=== PATIENT | male | born 1955 | race Caucasian/White ===

== ENCOUNTER 2016-12-03 06:10 | Emergency (ER) | payer MEDICARE ==
[2016-12-03 06:26] VITALS: BP 142/99
[2016-12-03 06:46] LABS: Basophils % (Auto) 0.4 % (0.0-1.8); Eosinophils % (Auto) 0.9 % (0.0-4.3); Hematocrit 43.1 % (35.5-45.6); Hemoglobin 14.8 gm/dl (11.8-15.2); Mean Corpuscular HGB Conc 34 % (32-34); Mean Corpuscular Hemoglobin 28 pg (28-32); Mean Corpuscular Volume 83 fl (84-94); Platelet Count 153 K/mm3 (140-440); Red Cell Distribution Width 13.1 % (13.2-15.2); White Blood Count 6.3 K/mm3 (4.5-11.0)
[2016-12-03 07:03] LABS: Albumin 4.7 g/dL (3.9-5); Albumin/Globulin Ratio 1.5 %; BUN/Creatinine Ratio 17.14; Bilirubin,Total 0.6 mg/dL (0.1-1.2); Calcium 10.3 mg/dL (8.4-10.2); Chloride 101.6 mmol/L (98-107); Potassium 4.5 mmol/L (3.6-5.0); Total Protein 7.8 g/dL (6.3-8.2)
[2016-12-03 11:04] LABS: Bilirubin,Urine NEG (Negative); Blood,Urine NEG (Negative); Ketones,Urine NEG (Negative); Leukocyte Esterase,Urine NEG (Negative); Nitrite,Urine NEG (Negative); Protein,Urine <15 mg/dL mg/dL (Negative); Urobilinogen,Urine < 2.0 mg/dL (<2.0); WBC,Urine < 1.0 /HPF (0.0-6.0)
--- NOTE | 2016-12-04 17:56 | ED Elopement Review ---
ED Pt Elopement review - Results review Lab results: Laboratory Tests 12/03/16 12/03/16 12/03/16 06:31 06:31 10:11 WBC 6.3 RBC 5.20 H Hgb 14.8 Hct 43.1 MCV 83 L MCH 28 MCHC 34 RDW 13.1 L Plt Count 153 Lymph % (Auto) 27.7 Bowie % (Auto) 7.3 Eos % (Auto) 0.9 Baso % (Auto) 0.4 Lymph # 1.7 Bowie # 0.5 Eos # 0.1 Baso # 0.0 Seg Neutrophils % 63.7 Seg Neutrophils # 4.0 Sodium 141 Potassium 4.5 Chloride 101.6 Carbon Dioxide 25 Anion Gap 19 BUN 24 H Creatinine 1.4 Estimated GFR 52 BUN/Creatinine Ratio 17.14 Glucose 135 H Calcium 10.3 H Total Bilirubin 0.6 AST 18 ALT 16 Alkaline Phosphatase 66 Total Protein 7.8 Albumin 4.7 Albumin/Globulin Ratio 1.5 Lipase 55 Urine Color Yellow Urine Turbidity Clear Urine pH 5.0 Ur Specific [place] 1.020 Urine Protein <15 mg/dl Urine Glucose (UA) Neg Urine Ketones Neg Urine Blood Neg Urine Nitrite Neg Urine Bilirubin Neg Urine Urobilinogen < 2.0 Ur Leukocyte Esterase Neg Urine WBC (Auto) < 1.0 Urine RBC (Auto) 2.0 U Epithel Cells (Auto) < 1.0 - Call Back decision Pt Call Back Decision: No action required
== END 2016-12-03 14:16 | disposition left against medical advice (07) ==
LOC: ED 06:10
DX: R10.9 Unspecified abdominal pain (principal); R11.2 Nausea with vomiting, unspecified; K59.00 Constipation, unspecified; Z53.21 Procedure and treatment not carried out due to patient leaving prior to being seen by health care provider
CPT/HCPCS: 36415; 80053; 81001; 83690; 85025

== ENCOUNTER 2017-06-21 08:31 | Emergency (ER) | payer MEDICARE ==
[2017-06-21 08:55] LABS: Urine Drugs of Abuse Note Disclamer
[2017-06-21 09:16] LABS: Anion Gap 16 mmol/L; BUN/Creatinine Ratio 15; Blood Urea Nitrogen 18 mg/dL (9-20); Calcium 10.1 mg/dL (8.4-10.2); Carbon Dioxide 30 mmol/L (22-30); Chloride 105.6 mmol/L (98-107); Glucose 112 mg/dL (75-100); Potassium 4.4 mmol/L (3.6-5.0); Sodium 147 mmol/L (137-145)
[2017-06-21 09:24] LABS: Basophils % (Auto) 0.6 % (0.0-1.8); Eosinophils % (Auto) 1.4 % (0.0-4.3); Hematocrit 46.8 % (35.5-45.6); Hemoglobin 15.7 gm/dl (11.8-15.2); Mean Corpuscular HGB Conc 34 % (32-34); Mean Corpuscular Hemoglobin 28 pg (28-32); Mean Corpuscular Volume 85 fl (84-94); Platelet Count 185 K/mm3 (140-440); Red Blood Count 5.53 M/mm3 (3.65-5.03); Red Cell Distribution Width 12.9 % (13.2-15.2); White Blood Count 6.1 K/mm3 (4.5-11.0)
[2017-06-21 09:28] LABS: Bilirubin,Urine NEG (Negative); Blood,Urine NEG (Negative); Ketones,Urine NEG (Negative); Leukocyte Esterase,Urine NEG (Negative); Mucus,Urine FEW /HPF; Nitrite,Urine NEG (Negative); Protein,Urine <15 mg/dL mg/dL (Negative); Urobilinogen,Urine < 2.0 mg/dL (<2.0)
[2017-06-21] MEDS ORDERED: AMBIEN PO PRN (19:01)
--- NOTE | 2017-06-21 19:28 | Emergency Department Report ---
HPI - General Chief Complaint: Psych Time Seen by Provider: 06/21/17 17:14 - HPI HPI: This is a 61-year-old male presents to the emergency department with complaint of depression and suicidal ideations. The patient has a history of manic depression and schizophrenia. He says that he has been hearing voices as well which is exacerbating his symptoms. When asked what is causing his depression, he says that he has been having some family issues and tension amongst family members. He does not have any specific plan as to how he would like to hurt himself. He denies any illicit drugs or any alcohol use. He denies any visual ulcerations, homicidal ideations. The patient has had multiple inpatient psychiatric admissions in the past. He says that he follows with the [facility] for his psychiatric needs and gets monthly and Invega injections. ED Past Medical Hx - Past Medical History Previous Medical History?: Yes Hx Hypertension: Yes Hx Heart Attack/AMI: Yes Hx Congestive Heart Failure: No Hx Diabetes: No Hx Arthritis: Yes Hx Headaches / Migraines: Yes Hx Seizures: Yes Hx Kidney Stones: Yes Hx Psychiatric Treatment: Yes (Bi-polar, Depression) Hx Asthma: Yes Hx COPD: No Hx Tuberculosis: No Additional medical history: coma 2009-- medicine induced - Surgical History Past Surgical History?: Yes Hx Coronary Stent: Yes Additional Surgical History: BI-lateral hip replacement 2013 - Social History Smoking Status: Never Smoker Substance Use Type: None - Medications Home Medications: Home Medications Medication Instructions Recorded Confirmed Last Taken Type Chlorpromazine HCl [chlorproMAZINE] 75 mg PO HS 07/22/15 07/22/15 Unknown History Docusate Sodium [Colace CAP] 100 mg PO DAILY 07/22/15 07/22/15 Unknown History Famotidine [Pepcid] 20 mg PO DAILY 07/22/15 07/22/15 Unknown History LORazepam [Ativan] 1 mg PO TID 07/22/15 07/22/15 Unknown History Lisinopril [Zestril TAB] 2.5 mg PO QDAY 07/22/15 07/22/15 Unknown History Multivitamin Tab [Multiple Vitamin 1 tab PO DAILY 07/22/15 07/22/15 Unknown History TAB (Theragran)] Tamsulosin [Flomax] 0.4 mg PO QHS 07/22/15 07/22/15 Unknown History Temazepam [Restoril] 30 mg PO QHS 07/22/15 07/22/15 Unknown History fluPHENAZine HCL [fluPHENAZine] 10 mg PO BID 07/22/15 07/22/15 Unknown History HYDROcodone/APAP 7.5-325 [[place] 1 each PO Q8HR PRN #12 tablet 11/08/16 Unknown Rx 7.5-325 mg TAB] Ondansetron [Zofran TAB] 4 mg PO Q8HR PRN #20 tablet 11/08/16 Unknown Rx ED Review of Systems ROS: Stated complaint: MENTAL HEALTH, SUICIDAL Other details as noted in HPI Comment: All other systems reviewed and negative Constitutional: denies: chills, fever Eyes: denies: eye pain, eye discharge, vision change ENT: denies: ear pain, throat pain Respiratory: denies: cough, shortness of breath, wheezing Cardiovascular: denies: chest pain, palpitations Gastrointestinal: denies: abdominal pain, nausea, diarrhea Genitourinary: denies: urgency, dysuria Musculoskeletal: denies: back pain, joint swelling, arthralgia Skin: denies: rash, lesions Neurological: denies: headache, weakness, paresthesias Psychiatric: auditory hallucinations, suicidal thoughts. denies: visual hallucinations, homicidal thoughts Physical Exam - Physical Exam Vital Signs: Vital Signs 06/21/17 06/21/17 08:39 16:12 Temperature 98.4 F Pulse Rate 68 53 L Respiratory 16 18 Rate Blood Pressure 110/82 Blood Pressure 142/86 [Right] O2 Sat by Pulse 97 Oximetry Physical Exam: GENERAL: The patient is well-developed well-nourished. HENT: Normocephalic. Atraumatic. Patient has moist mucous membranes. EYES: Extraocular motions are intact. Pupils equal reactive to light bilaterally. NECK: Supple. Trachea is midline. CHEST/LUNGS: Clear to auscultation. There is no respiratory distress noted. HEART/CARDIOVASCULAR: Regular. There is no tachycardia. There is no gallop rub or murmur. ABDOMEN: Abdomen is soft, nontender. Patient has normal bowel sounds. There is no abdominal distention. SKIN: Skin is warm and dry. NEURO: The patient is awake, alert, and oriented. The patient is cooperative. The patient has no focal neurologic deficits. The patient has normal speech. MUSCULOSKELETAL: There is no tenderness or deformity. There is no limitation range of motion. There is no evidence of acute injury. ED Course Vital Signs 06/21/17 06/21/17 08:39 16:12 Temperature 98.4 F Pulse Rate 68 53 L Respiratory 16 18 Rate Blood Pressure 110/82 Blood Pressure 142/86 [Right] O2 Sat by Pulse 97 Oximetry ED Medical Decision Making - Lab Data Result diagrams: 06/21/17 08:48 06/21/17 08:48 - Medical Decision Making 61-year-old male presents with complaint of increased depression and suicidal ideations over the past few weeks. It also appears that the patient is not happy with his current living situation at [place]. Labs are unremarkable including negative UDS and blood alcohol level. No signs of infection or lateral abnormalities. Vital signs stable throughout his ED course. He was made a 1013 secondary to the suicidal ideations. He appears medically cleared for psychiatric placement. - Differential Diagnosis schizophrenia, schizoaffective, bipolar, substance abuse Critical Care Time: No Critical care attestation.: If time is entered above; I have spent that time in minutes in the direct care of this critically ill patient, excluding procedure time. ED Disposition Clinical Impression: Suicidal ideations, Hearing voices Disposition: DC/TX-65 PSY HOSP/PSY UNIT Is pt being admited?: No Condition: Stable Referrals: PRIMARY MD MYRANDA [Primary Care Provider] - 3-5 Days Time of Disposition: 19:28
[2017-06-21 20:04] VITALS: BP 124/82
== END 2017-06-22 07:00 ==
LOC: ED 08:31 → EEVIPCON 08:31 → ED 06-22 07:00
DX: R45.851 Suicidal ideations (principal); R44.0 Auditory hallucinations; I10 Essential (primary) hypertension; I25.2 Old myocardial infarction; M19.90 Unspecified osteoarthritis, unspecified site; R56.9 Unspecified convulsions; F31.9 Bipolar disorder, unspecified
CPT/HCPCS: 36415; 80048; 80307; 81001; 85025; 99285; G0480; 80320

== ENCOUNTER 2017-06-28 01:38 | Emergency (ER) | payer MEDICARE ==
--- NOTE | 2017-06-28 07:37 | Emergency Department Report ---
Chief Complaint: Skin/Abscess/Foreign Body Stated Complaint: EAR ACHE - HPI History of Present Illness: 61-year-old male past medical history asthma, [place], CAD with stents, bipolar disorder, migraines, multiple allergies presents with multiple complaints. Patient's first complaint is that he has had multiple episodes of dizziness and weakness over the last 3-5 days. Patient states he has also had some intermittent chest pain. Patient also states he is concerned that he may have been exposed to bedbugs and has seen them crawling on his belongings. Patient is complaining of left earache and is concerned bedbugs may be in his ear. - ROS Review of Systems: Possible exposure to bedbugs, intermittent episodes of dizziness - Exam Vital Signs: Vital Signs 06/28/17 02:29 Temperature 97.8 F Pulse Rate 78 Respiratory 16 Rate Blood Pressure 129/91 O2 Sat by Pulse 97 Oximetry Physical Exam: Ear wax impaction left ear canal, right ear canal within normal limits, no obvious signs of bedbug infestation on initial inspection, patient is awake alert and oriented 3 MSE screening note: Focused history and physical exam performed. Due to findings the following was ordered: Screening Assessment/Plan/Differential Dx: Possible bedbug exposure, dizziness, chest pain 1- This initial assessment/diagnostic orders/clinical plan/ treatment(s) is/are subject to change based on pt's health status, clinical progression and re- assessment by fellow clinical providers in the ED. Further treatment and workup at subsequent clinical provers discretion. Patient/guardians urged not to elope from ED as their condition may be serious if not clinically assessed and managed. 2-as patient complains of dizziness and chest pain I will order EKG and basic labs, UA, troponin 3-I notified the nurse Osmar as charge nurse was unavailable at this time the patient is not solely here as a possible bedbug exposure but has other symptoms including dizziness and chest pain ED Disposition for MSE Condition: Stable Referrals: PRIMARY CARE,MD [Primary Care Provider] - 3-5 Days
[2017-06-28 07:59] LABS: Basophils % (Auto) 0.5 % (0.0-1.8); Hematocrit 44.2 % (35.5-45.6); Hemoglobin 15.1 gm/dl (11.8-15.2); Mean Corpuscular HGB Conc 34 % (32-34); Mean Corpuscular Hemoglobin 29 pg (28-32); Mean Corpuscular Volume 84 fl (84-94); Platelet Count 135 K/mm3 (140-440); Red Blood Count 5.28 M/mm3 (3.65-5.03); Red Cell Distribution Width 12.7 % (13.2-15.2); White Blood Count 6.3 K/mm3 (4.5-11.0)
[2017-06-28 08:15] LABS: BUN/Creatinine Ratio 13; Blood Urea Nitrogen 15 mg/dL (9-20); Calcium 9.4 mg/dL (8.4-10.2); Carbon Dioxide 29 mmol/L (22-30); Creatine Kinase 72 units/L (55-170); Glucose 112 mg/dL (75-100)
[2017-06-28 08:16] LABS: Anion Gap 17 mmol/L; Potassium 3.9 mmol/L (3.6-5.0); Sodium 144 mmol/L (137-145)
--- NOTE | 2017-06-28 08:35 | Emergency Department Report ---
ED General Adult HPI - General Chief complaint: Skin/Abscess/Foreign Body Stated complaint: EAR ACHE Time Seen by Provider: 06/28/17 08:05 Source: patient Mode of arrival: Ambulatory Limitations: No Limitations - History of Present Illness Initial comments: The patient had a sensation of bugs crawling on him. He does admit to essentially formication, that is the sensation of bugs crawling all over him due to his psychiatric condition. He believed that bugs were crawling in his eyes and in his years. He also stated that incidentally he had some soreness in his lower sternal area which did not radiate. He is pain free now. He was examined and medical screening to include otoscopy which was negative. He was sent to the emergency department for evaluation of his chest pain which does not seem to be significant at this time. Patient denies any prior history of coronary artery disease. He states that he woke up in a coma he states due to diabetes although he is not a diabetic. He admits that he may have taken an overdose at that time. In any case he required tracheostomy. He has no knowledge or history of myocardial infarction. He does not report a family history thereof. He does not currently smoke. He lives in a snf for his mental health disorder. -: Gradual Location: chest Radiation: non-radiation Quality: other (soreness) Consistency: now resolved Improves with: none Worsens with: none Associated Symptoms: denies other symptoms Treatments Prior to Arrival: none - Related Data Home Medications Medication Instructions Recorded Confirmed Last Taken Chlorpromazine HCl [chlorproMAZINE] 75 mg PO HS 07/22/15 07/22/15 Unknown Docusate Sodium [Colace CAP] 100 mg PO DAILY 07/22/15 07/22/15 Unknown Famotidine [Pepcid] 20 mg PO DAILY 07/22/15 07/22/15 Unknown LORazepam [Ativan] 1 mg PO TID 07/22/15 07/22/15 Unknown Lisinopril [Zestril TAB] 2.5 mg PO QDAY 07/22/15 07/22/15 Unknown Multivitamin Tab [Multiple Vitamin 1 tab PO DAILY 07/22/15 07/22/15 Unknown TAB (Theragran)] Tamsulosin [Flomax] 0.4 mg PO QHS 07/22/15 07/22/15 Unknown Temazepam [Restoril] 30 mg PO QHS 07/22/15 07/22/15 Unknown fluPHENAZine HCL [fluPHENAZine] 10 mg PO BID 07/22/15 07/22/15 Unknown Previous Rx's Medication Instructions Recorded Last Taken Type HYDROcodone/APAP 7.5-325 [[employer] 1 each PO Q8HR PRN #12 tablet 11/08/16 Unknown Rx 7.5-325 mg TAB] Ondansetron [Zofran TAB] 4 mg PO Q8HR PRN #20 tablet 11/08/16 Unknown Rx Allergies Allergy/AdvReac Type Severity Reaction Status Date / Time haloperidol [From Haldol] Allergy Intermediate Shortness Verified 07/21/15 20:48 of Breath haloperidol lactate Allergy Intermediate Shortness Verified 07/21/15 20:48 [From Haldol] of Breath oxycodone Allergy Unknown Verified 12/03/16 06:20 benztropine mesylate AdvReac Shortness Verified 07/21/15 20:49 [From Cogentin] of Breath ED Review of Systems ROS: Stated complaint: EAR ACHE Other details as noted in HPI Constitutional: denies: chills, fever Eyes: denies: eye pain, eye discharge, vision change ENT: denies: ear pain, throat pain Respiratory: denies: cough, shortness of breath, wheezing Cardiovascular: chest pain. denies: palpitations Endocrine: no symptoms reported Gastrointestinal: denies: abdominal pain, nausea, diarrhea Genitourinary: denies: urgency, dysuria Musculoskeletal: denies: back pain, joint swelling, arthralgia Skin: denies: rash, lesions Neurological: denies: headache, weakness, paresthesias Psychiatric: other (formication). denies: anxiety, depression Hematological/Lymphatic: denies: easy bleeding, easy bruising ED Past Medical Hx - Past Medical History Previous Medical History?: Yes Hx Hypertension: Yes Hx Heart Attack/AMI: Yes Hx Congestive Heart Failure: No Hx Diabetes: No Hx Arthritis: Yes Hx Headaches / Migraines: Yes Hx Seizures: Yes Hx Kidney Stones: Yes Hx Psychiatric Treatment: Yes (Bi-polar, Depression) Hx Asthma: Yes Hx COPD: No Hx Tuberculosis: No Hx HIV: Yes Additional medical history: coma 2009-- medicine induced - Surgical History Past Surgical History?: Yes Hx Coronary Stent: Yes Additional Surgical History: BI-lateral hip replacement 2013 - Social History Smoking Status: Never Smoker - Medications Home Medications: Home Medications Medication Instructions Recorded Confirmed Last Taken Type Chlorpromazine HCl [chlorproMAZINE] 75 mg PO HS 07/22/15 07/22/15 Unknown History Docusate Sodium [Colace CAP] 100 mg PO DAILY 07/22/15 07/22/15 Unknown History Famotidine [Pepcid] 20 mg PO DAILY 07/22/15 07/22/15 Unknown History LORazepam [Ativan] 1 mg PO TID 07/22/15 07/22/15 Unknown History Lisinopril [Zestril TAB] 2.5 mg PO QDAY 07/22/15 07/22/15 Unknown History Multivitamin Tab [Multiple Vitamin 1 tab PO DAILY 07/22/15 07/22/15 Unknown History TAB (Theragran)] Tamsulosin [Flomax] 0.4 mg PO QHS 07/22/15 07/22/15 Unknown History Temazepam [Restoril] 30 mg PO QHS 07/22/15 07/22/15 Unknown History fluPHENAZine HCL [fluPHENAZine] 10 mg PO BID 07/22/15 07/22/15 Unknown History HYDROcodone/APAP 7.5-325 [[employer] 1 each PO Q8HR PRN #12 tablet 11/08/16 Unknown Rx 7.5-325 mg TAB] Ondansetron [Zofran TAB] 4 mg PO Q8HR PRN #20 tablet 11/08/16 Unknown Rx ED Physical Exam - General Limitations: No Limitations General appearance: alert, in no apparent distress - Head Head exam: Present: atraumatic, normocephalic - Eye Eye exam: Present: normal appearance. Absent: scleral icterus - ENT ENT exam: Present: mucous membranes moist - Neck Neck exam: Present: normal inspection. Absent: tenderness, meningismus - Respiratory Respiratory exam: Present: normal lung sounds bilaterally. Absent: respiratory distress - Cardiovascular Cardiovascular Exam: Present: regular rate, normal rhythm. Absent: systolic murmur, diastolic murmur, rubs, gallop - GI/Abdominal GI/Abdominal exam: Present: soft, normal bowel sounds. Absent: distended, tenderness, guarding, rebound, rigid - Rectal Rectal exam: Present: deferred - Extremities Exam Extremities exam: Present: normal inspection - Back Exam Back exam: Present: normal inspection. Absent: CVA tenderness (R), CVA tenderness (L), paraspinal tenderness, vertebral tenderness - Neurological Exam Neurological exam: Present: alert, oriented X3, CN II-XII intact. Absent: motor sensory deficit - Psychiatric Psychiatric exam: Present: normal mood, flat affect - Skin Skin exam: Present: warm, dry, intact, normal color, other (I did not see evidence of bug bites or bumps on the skin). Absent: rash ED Course Vital Signs 06/28/17 02:29 Temperature 97.8 F Pulse Rate 78 Respiratory 16 Rate Blood Pressure 129/91 O2 Sat by Pulse 97 Oximetry ED Medical Decision Making - Lab Data Result diagrams: 06/28/17 07:39 06/28/17 07:39 Laboratory Results - last 24 hr 06/28/17 06/28/17 07:39 07:39 WBC 6.3 RBC 5.28 H Hgb 15.1 Hct 44.2 MCV 84 MCH 29 MCHC 34 RDW 12.7 L Plt Count 135 L Lymph % (Auto) 25.2 [place] % (Auto) 6.5 Eos % (Auto) 2.0 Baso % (Auto) 0.5 Lymph # 1.6 Riley # 0.4 Eos # 0.1 Baso # 0.0 Seg Neutrophils % 65.8 Seg Neutrophils # 4.2 Sodium 144 Potassium 3.9 Chloride 102.0 Carbon Dioxide 29 Anion Gap 17 BUN 15 Creatinine 1.2 Estimated GFR > 60 BUN/Creatinine Ratio 13 Glucose 112 H Calcium 9.4 Total Creatine Kinase 72 Troponin T < 0.010 - EKG Data -: EKG Interpreted by Ri EKG shows normal: sinus rhythm, axis, intervals, QRS complexes, ST-T waves Rate: normal - EKG Data Interpretation: normal EKG - Medical Decision Making Patient's AIDAN score is 0. His heart score is 1. He is appropriate for outpatient disposition Critical care attestation.: If time is entered above; I have spent that time in minutes in the direct care of this critically ill patient, excluding procedure time. ED Disposition Clinical Impression: Atypical chest pain, Formication Disposition: DC-01 TO HOME OR SELFCARE Is pt being admited?: No Does the pt Need Aspirin: No Condition: Stable Instructions: Chest Pain (ED) Additional Instructions: Follow-up with the primary care provider. Return any acute change or worsening symptoms. Referrals: PRIMARY CARE, [Primary Care Provider] - 2-3 Days Time of Disposition: 08:36
[2017-06-28 09:03] VITALS: BP 159/88
== END 2017-06-28 09:05 | disposition home or self-care (01) ==
LOC: ED 01:38
DX: R07.89 Other chest pain (principal); I10 Essential (primary) hypertension; I25.2 Old myocardial infarction; G43.909 Migraine, unspecified, not intractable, without status migrainosus; F32.9 Major depressive disorder, single episode, unspecified; J45.909 Unspecified asthma, uncomplicated; Z88.8 Allergy status to other drugs, medicaments and biological substances; M19.90 Unspecified osteoarthritis, unspecified site
CPT/HCPCS: 36415; 80048; 82550; 84484; 85025; 93005; 93010; 99283

== ENCOUNTER 2017-07-26 16:29 | Emergency (ER) | payer MEDICARE ==
--- NOTE | 2017-07-26 17:21 | Emergency Department Report ---
Chief Complaint: Extremity Injury, Lower Stated Complaint: RIGHT LEG PAIN ,SWOLLEN - HPI History of Present Illness: this is a 61-year-old male that presents with right leg pain and calf pain 4 weeks. Patient describes Pain as aching level of 8 out of 10. Denies any trauma. Denies any numbness, tingling, fever, chills, nausea, vomiting, chest pain or shortness of breath. Past medical history includes DVT to the left lower extremity, arthritis, asthma, headache, [place], HIV, hypertension, kidney stones, seizure, bipolar, coronary stent. - Exam Vital Signs: Vital Signs 07/26/17 17:04 Temperature 98.6 F Pulse Rate 63 Respiratory 18 Rate Blood Pressure 119/79 O2 Sat by Pulse 98 Oximetry Physical Exam: GENERAL: The patient is a well-developed, well-nourished female in no apparent distress. Patient is alert and acting appropriately for age. Alert and oriented 3, no apparent distress, normal gait, atraumatic. LUNGS: Clear to auscultation. Non labor breathing. No intercostal retractions. Symmetrical with respiration, no wheezing, no rales, or crackles. HEART: Regular rate and rhythm without murmur, rubs or gallops. No reproducible. S1, S2 present, regular rate and rhythm without murmur, no rubs, no gallops. EXTREMITIES: Without any cyanosis, clubbing, rash, lesions or edema. Peripheral pulses intact. Capillary refill less than 2 seconds. Full range of motion bilaterally. Positive Homans test to the right extremity. No joint swelling or joint redness. Right Calf tenderness touch. MSE screening note: Focused history and physical exam performed. Due to findings the following was ordered: 1- This initial assessment/diagnostic orders/clinical plan/ treatment(s) is/are subject to change based on pt's health status, clinical progression and re- assessment by fellow clinical providers in the ED. Further treatment and workup at subsequent clinical provers discretion. Patient/guardians urged not to elope from ED as their condition may be serious if not clinically assessed and managed. 2-CBC, CMP, Pt, INR, UA 3-Doppler ultrasound right lower extremity ED Disposition for MSE Condition: Stable
[2017-07-26 17:53] LABS: Basophils % (Auto) 0.4 % (0.0-1.8); Eosinophils % (Auto) 3.3 % (0.0-4.3); Hematocrit 41.8 % (35.5-45.6); Hemoglobin 14.5 gm/dl (11.8-15.2); Mean Corpuscular HGB Conc 35 % (32-34); Mean Corpuscular Hemoglobin 29 pg (28-32); Mean Corpuscular Volume 85 fl (84-94); Platelet Count 151 K/mm3 (140-440); Red Blood Count 4.94 M/mm3 (3.65-5.03); Red Cell Distribution Width 12.2 % (13.2-15.2); White Blood Count 7.2 K/mm3 (4.5-11.0)
[2017-07-26 18:04] LABS: INR 0.98 (0.87-1.13)
[2017-07-26 18:05] LABS: Partial Thromboplastin Time 40.5 Sec. (24.2-36.6)
[2017-07-26 18:14] LABS: Alanine Aminotransferase 7 units/L (7-56); Albumin 4.5 g/dL (3.9-5); Albumin/Globulin Ratio 1.6 %; Alkaline Phosphatase 69 units/L (35-129); Anion Gap 18 mmol/L; BUN/Creatinine Ratio 15; Blood Urea Nitrogen 18 mg/dL (9-20); Calcium 9.8 mg/dL (8.4-10.2); Carbon Dioxide 29 mmol/L (22-30); Glucose 82 mg/dL (75-100); Potassium 4.1 mmol/L (3.6-5.0); Sodium 143 mmol/L (137-145); Total Protein 7.3 g/dL (6.3-8.2)
[2017-07-26 21:40] VITALS: BP 123/77
[2017-07-26] MEDS ORDERED: LOVENOX SUB-Q SCH (23:45)
--- NOTE | 2017-07-27 01:29 | Emergency Department Report ---
ED General Adult HPI - General Chief complaint: Extremity Injury, Lower Stated complaint: RIGHT LEG PAIN ,SWOLLEN Time Seen by Provider: 07/26/17 22:32 Source: patient Mode of arrival: Ambulatory Limitations: No Limitations - History of Present Illness Initial comments: Patient is a 61-year-old male past history of bipolar disorder who presents with right calf swelling. Patient states the right calf swollen has been going on for the last 4 weeks. He states that he has only a moderate amount of pain in the calf. This is a 3 out of 10 as an achy type pain that doesn't radiate anywhere. He was told to come to the emergency department to get a ultrasound of his leg. Patient denies any shortness of breath or any nausea or vomiting. Patient arrived in the evening and currently there are no ultrasound techs to do the DVT ultrasound. Severity scale (0 -10): 8 - Related Data Home Medications Medication Instructions Recorded Confirmed Last Taken Chlorpromazine HCl [chlorproMAZINE] 75 mg PO HS 07/22/15 07/26/17 Unknown Docusate Sodium [Colace CAP] 100 mg PO DAILY 07/22/15 07/27/17 Unknown Famotidine [Pepcid] 20 mg PO DAILY 07/22/15 07/27/17 Unknown LORazepam [Ativan] 1 mg PO TID 07/22/15 07/26/17 Unknown Lisinopril [Zestril TAB] 2.5 mg PO QDAY 07/22/15 07/26/17 Unknown Multivitamin Tab [Multiple Vitamin 1 tab PO DAILY 07/22/15 07/26/17 Unknown TAB (Theragran)] Tamsulosin [Flomax] 0.4 mg PO QHS 07/22/15 07/26/17 Unknown Temazepam [Restoril] 30 mg PO QHS 07/22/15 07/26/17 Unknown fluPHENAZine HCL [fluPHENAZine] 10 mg PO BID 07/22/15 07/26/17 Unknown Previous Rx's Medication Instructions Recorded Last Taken Type HYDROcodone/APAP 7.5-325 [[place] 1 each PO Q8HR PRN #12 tablet 11/08/16 Unknown Rx 7.5-325 mg TAB] Ondansetron [Zofran TAB] 4 mg PO Q8HR PRN #20 tablet 11/08/16 Unknown Rx Allergies Allergy/AdvReac Type Severity Reaction Status Date / Time haloperidol [From Haldol] Allergy Intermediate Shortness Verified 07/21/15 20:48 of Breath haloperidol lactate Allergy Intermediate Shortness Verified 07/21/15 20:48 [From Haldol] of Breath oxycodone Allergy Unknown Verified 12/03/16 06:20 benztropine mesylate AdvReac Shortness Verified 07/21/15 20:49 [From Cogentin] of Breath ED Review of Systems ROS: Stated complaint: RIGHT LEG PAIN ,SWOLLEN Other details as noted in HPI Constitutional: denies: chills, fever Eyes: denies: eye pain, eye discharge, vision change ENT: denies: ear pain, throat pain Respiratory: denies: cough, shortness of breath, wheezing Cardiovascular: denies: chest pain, palpitations Endocrine: no symptoms reported Gastrointestinal: denies: abdominal pain, nausea, diarrhea Genitourinary: denies: urgency, dysuria Musculoskeletal: as per HPI, other (right calf pain ). denies: back pain, joint swelling, arthralgia Skin: denies: rash, lesions Neurological: denies: headache, weakness, paresthesias Psychiatric: denies: anxiety, depression Hematological/Lymphatic: denies: easy bleeding, easy bruising ED Past Medical Hx - Past Medical History Previous Medical History?: Yes Hx Hypertension: Yes Hx Heart Attack/AMI: Yes Hx Congestive Heart Failure: No Hx Diabetes: No Hx Deep Vein Thrombosis: Yes Hx Arthritis: Yes Hx Headaches / Migraines: Yes Hx Seizures: Yes Hx Kidney Stones: Yes Hx Psychiatric Treatment: Yes (Bi-polar, Depression) Hx Asthma: Yes Hx COPD: No Hx Tuberculosis: No Hx HIV: Yes Additional medical history: coma 2009-- medicine induced - Surgical History Past Surgical History?: Yes Hx Coronary Stent: Yes Additional Surgical History: BI-lateral hip replacement 2013 - Social History Smoking Status: Former Smoker Substance Use Type: Prescribed - Medications Home Medications: Home Medications Medication Instructions Recorded Confirmed Last Taken Type Chlorpromazine HCl [chlorproMAZINE] 75 mg PO HS 07/22/15 07/26/17 Unknown History Docusate Sodium [Colace CAP] 100 mg PO DAILY 07/22/15 07/27/17 Unknown History Famotidine [Pepcid] 20 mg PO DAILY 07/22/15 07/27/17 Unknown History LORazepam [Ativan] 1 mg PO TID 07/22/15 07/26/17 Unknown History Lisinopril [Zestril TAB] 2.5 mg PO QDAY 07/22/15 07/26/17 Unknown History Multivitamin Tab [Multiple Vitamin 1 tab PO DAILY 07/22/15 07/26/17 Unknown History TAB (Theragran)] Tamsulosin [Flomax] 0.4 mg PO QHS 07/22/15 07/26/17 Unknown History Temazepam [Restoril] 30 mg PO QHS 07/22/15 07/26/17 Unknown History fluPHENAZine HCL [fluPHENAZine] 10 mg PO BID 07/22/15 07/26/17 Unknown History HYDROcodone/APAP 7.5-325 [[place] 1 each PO Q8HR PRN #12 tablet 11/08/16 07/26/17 Unknown Rx 7.5-325 mg TAB] Ondansetron [Zofran TAB] 4 mg PO Q8HR PRN #20 tablet 11/08/16 07/26/17 Unknown Rx ED Physical Exam - General Limitations: No Limitations General appearance: alert, in no apparent distress - Head Head exam: Present: atraumatic, normocephalic - Eye Eye exam: Present: normal appearance - ENT ENT exam: Present: mucous membranes moist - Neck Neck exam: Present: normal inspection - Respiratory Respiratory exam: Present: normal lung sounds bilaterally. Absent: respiratory distress - Cardiovascular Cardiovascular Exam: Present: regular rate, normal rhythm. Absent: systolic murmur, diastolic murmur, rubs, gallop - GI/Abdominal GI/Abdominal exam: Present: soft, normal bowel sounds - Rectal Rectal exam: Present: deferred - Extremities Exam Extremities exam: Present: other (mild right calf swelling +2 peripheral pulses) - Back Exam Back exam: Present: normal inspection - Neurological Exam Neurological exam: Present: alert, oriented X3 - Psychiatric Psychiatric exam: Present: normal affect, normal mood - Skin Skin exam: Present: warm, dry, intact, normal color. Absent: rash ED Course Vital Signs 07/26/17 07/26/17 17:04 21:37 Temperature 98.6 F 98.6 F Pulse Rate 63 71 Respiratory 18 18 Rate Blood Pressure 119/79 123/77 O2 Sat by Pulse 98 97 Oximetry ED Medical Decision Making - Lab Data Result diagrams: 07/26/17 17:23 07/26/17 17:23 Lab Results 07/26/17 07/26/17 07/26/17 Range/Units 17:23 17:23 17:23 WBC 7.2 (4.5-11.0) K/mm3 RBC 4.94 (3.65-5.03) M/mm3 Hgb 14.5 (11.8-15.2) gm/dl Hct 41.8 (35.5-45.6) % MCV 85 (84-94) fl MCH 29 (28-32) pg MCHC 35 H (32-34) % RDW 12.2 L (13.2-15.2) % Plt Count 151 (140-440) K/mm3 Lymph % (Auto) 27.3 (13.4-35.0) % [place] % (Auto) 8.6 H (0.0-7.3) % Eos % (Auto) 3.3 (0.0-4.3) % Baso % (Auto) 0.4 (0.0-1.8) % Lymph # 2.0 (1.2-5.4) K/mm3 [place] # 0.6 (0.0-0.8) K/mm3 Eos # 0.2 (0.0-0.4) K/mm3 Baso # 0.0 (0.0-0.1) K/mm3 Seg Neutrophils % 60.4 (40.0-70.0) % Seg Neutrophils # 4.4 (1.8-7.7) K/mm3 PT 13.5 (12.2-14.9) Sec. INR 0.98 (0.87-1.13) APTT 40.5 H (24.2-36.6) Sec. Sodium 143 (137-145) mmol/L Potassium 4.1 (3.6-5.0) mmol/L Chloride 100.0 (98-107) mmol/L Carbon Dioxide 29 (22-30) mmol/L Anion Gap 18 mmol/L BUN 18 (9-20) mg/dL Creatinine 1.2 (0.8-1.5) mg/dL Estimated GFR > 60 ml/min BUN/Creatinine Ratio 15 % Glucose 82 (75-100) mg/dL Calcium 9.8 (8.4-10.2) mg/dL Total Bilirubin 0.60 (0.1-1.2) mg/dL AST 10 (5-40) units/L ALT 7 (7-56) units/L Alkaline Phosphatase 69 (35-129) units/L Total Protein 7.3 (6.3-8.2) g/dL Albumin 4.5 (3.9-5) g/dL Albumin/Globulin Ratio 1.6 % - Radiology Data Radiology results: pending - Medical Decision Making Chief medical diagnosis: DVT Differential diagnosis: SVT, peripheral edema INR, PTT, CBC, CMP and I am Lovenox and ultrasound of right lower extremity Patient's blood work is unremarkable. Patient is not able to get ultrasound of leg I will write patient a prescription order to go get his DVT ultrasound tomorrow in the morning. Discussed palpation patient agrees plan is no verbal discharge instructions were given. I will give pt IM Lovenox to give him 24 hours of anticoagulant projection. Critical care attestation.: If time is entered above; I have spent that time in minutes in the direct care of this critically ill patient, excluding procedure time. ED Disposition Clinical Impression: Right leg swelling Disposition: DC-01 TO HOME OR SELFCARE Is pt being admited?: No Does the pt Need Aspirin: No Condition: Stable Instructions: Deep Venous Thrombosis (ED) Referrals: BUDDY MENA MD [Staff Physician] - 3-5 Days
== END 2017-07-27 02:18 | disposition home or self-care (01) ==
LOC: ED 16:29
DX: M79.89 Other specified soft tissue disorders (principal); I10 Essential (primary) hypertension; I25.2 Old myocardial infarction; M19.90 Unspecified osteoarthritis, unspecified site; G43.909 Migraine, unspecified, not intractable, without status migrainosus; R56.9 Unspecified convulsions; J45.909 Unspecified asthma, uncomplicated; I82.409 Acute embolism and thrombosis of unspecified deep veins of unspecified lower extremity; Z21 Asymptomatic human immunodeficiency virus [HIV] infection status; Z87.891 Personal history of nicotine dependence; Z88.8 Allergy status to other drugs, medicaments and biological substances
CPT/HCPCS: 36415; 80053; 85025; 85610; 85730; 96372; 99283; J1650

== ENCOUNTER 2017-07-27 12:47 | Outpatient (CLI) | payer MEDICARE ==
--- NOTE | 2017-08-01 07:31 | Vascular Lab Report ---
Right Lower Extremity Venous Duplex Study: Reason for Exam: Pain and swelling of the right lower extremity. Comments on the Right: Deep venous thrombosis is noted in the peroneal and posterior tibial veins extending through the popliteal up to the mid femoral vein.. The remaining veins visualized are freely compressible without evidence of internal echogenicity. Spontaneous and phasic flow is present proximally. Comments on the Left: A limited duplex study was done of the proximal veins of the left lower extremity. All veins visualized are freely compressible without evidence of internal echogenicity. Flow is spontaneous and phasic throughout. No evidence of acute or chronic thrombus is seen in any of the vessels visualized. Impression: Acute deep venous thrombosis in the right lower extremity.
== END 2017-07-27 12:48 | disposition home or self-care (01) ==
LOC: VAS 12:47
PROVIDERS: ATTEND Emergency Medicine
DX: I82.441 Acute embolism and thrombosis of right tibial vein (principal); I82.431 Acute embolism and thrombosis of right popliteal vein; I82.411 Acute embolism and thrombosis of right femoral vein

== ENCOUNTER 2017-08-01 16:36 | Inpatient (IN) | payer MEDICARE ==
--- NOTE | 2017-08-01 17:31 | Emergency Department Report ---
Chief Complaint: Chest Pain Stated Complaint: BILATERAL ARM/RIGHT CALF PAIN Time Seen by Provider: 08/01/17 17:26 - HPI History of Present Illness: pt is a 61 y/o male with hx of schizo, depression , PE and DVT dx on 2016 who presents for cp, and increased extremity pain pt states unable to get prescriptions fill for xarelto, pt [facility] and has been unable to secure medications,. pt denies sob cp is intermittent 3/10 exacerbated by increased activity. - Exam Vital Signs: Vital Signs 08/01/17 16:58 Temperature 97.3 F L Pulse Rate 88 Respiratory 16 Rate Blood Pressure 123/82 O2 Sat by Pulse 99 Oximetry MSE screening note: Focused history and physical exam performed. Due to findings the following was ordered: ED Disposition for MSE Condition: Stable
[2017-08-01 18:06] LABS: INR 1.06 (0.87-1.13)
[2017-08-01 18:07] LABS: Partial Thromboplastin Time 36.5 Sec. (24.2-36.6)
[2017-08-01 18:28] LABS: Albumin 4.7 g/dL (3.9-5); Albumin/Globulin Ratio 1.7 %; Bilirubin,Total 0.5 mg/dL (0.1-1.2); Calcium 9.3 mg/dL (8.4-10.2); Chloride 98.4 mmol/L (98-107); Potassium 4.4 mmol/L (3.6-5.0); Total Protein 7.5 g/dL (6.3-8.2)
[2017-08-02 06:39] LABS: Creatine Kinase MB 4.4 ng/mL (0.0-4.0)
[2017-08-02 06:40] LABS: Creatine Kinase 291 units/L (55-170)
[2017-08-02 07:06] LABS: Basophils % (Auto) 0.4 % (0.0-1.8); Eosinophils % (Auto) 3.6 % (0.0-4.3); Hematocrit 43.2 % (35.5-45.6); Hemoglobin 14.7 gm/dl (11.8-15.2); Mean Corpuscular HGB Conc 34 % (32-34); Mean Corpuscular Hemoglobin 29 pg (28-32); Mean Corpuscular Volume 85 fl (84-94); Platelet Count 140 K/mm3 (140-440); Red Blood Count 5.08 M/mm3 (3.65-5.03); Red Cell Distribution Width 12.2 % (13.2-15.2); White Blood Count 6.5 K/mm3 (4.5-11.0)
[2017-08-02] MEDS ORDERED: NACL 0.9% 500 ML 500 ML IV ONE (07:30)
--- NOTE | 2017-08-02 07:33 | Emergency Department Report ---
HPI - General Chief Complaint: Chest Pain Time Seen by Provider: 08/02/17 06:43 - HPI HPI: This is a 61-year-old male presents to the emergency department from the [facility] with a complaint of increased chest pain, calf pain and now bilateral upper extremity pain. The patient was recently admitted and discharged from [facility] after he was found to have multiple saddle emboli and DVTs. He was set up to be discharged home on Xarelto but the patient says that he has been unable to get it as the 2 pharmacies contacted did not have this medication and therefore he has not been on any of the meds and is not anticoagulated. He was seen by the psychiatrist at the [facility] and was sent in as he is unable to stay with them if he is not on anticoagulation and deemed stable. He otherwise has a past medical history of asthma, migraines, coronary artery disease, hypertension, seizures. He has a psychiatric history of bipolar disorder and depression. ED Past Medical Hx - Past Medical History Previous Medical History?: Yes Hx Hypertension: Yes Hx Heart Attack/AMI: Yes Hx Congestive Heart Failure: No Hx Diabetes: No Hx Deep Vein Thrombosis: Yes Hx Arthritis: Yes Hx Headaches / Migraines: Yes Hx Seizures: Yes Hx Kidney Stones: Yes Hx Psychiatric Treatment: Yes (Bi-polar, Depression) Hx Asthma: Yes Hx COPD: No Hx Tuberculosis: No Hx HIV: (denies) Additional medical history: coma 2009-- medicine induced - Surgical History Past Surgical History?: Yes Hx Coronary Stent: Yes Additional Surgical History: BI-lateral hip replacement 2013 - Social History Smoking Status: Never Smoker Substance Use Type: None - Medications Home Medications: Home Medications Medication Instructions Recorded Confirmed Last Taken Type FLUoxetine [PROzac] 20 mg PO QDAY 07/27/17 08/02/17 Unknown History Paliperidone [Invega] 9 mg PO QAM 07/27/17 08/02/17 Unknown History traZODone [Desyrel] 1 tab PO DAILY 07/27/17 08/02/17 Unknown History Famotidine [Pepcid] 20 mg PO BID #60 tablet 07/29/17 08/02/17 Unknown Rx Rivaroxaban [Xarelto] 15 mg PO BID 21 Days tablet 07/29/17 08/02/17 Unknown Rx traMADol [Ultram 50 MG tab] 50 mg PO Q6HR PRN #30 tablet 07/29/17 08/02/17 Unknown Rx ED Review of Systems ROS: Stated complaint: BILATERAL ARM/RIGHT CALF PAIN Other details as noted in HPI Comment: All other systems reviewed and negative Constitutional: denies: chills, fever Eyes: denies: eye pain, eye discharge, vision change ENT: denies: ear pain, throat pain Respiratory: shortness of breath. denies: cough Cardiovascular: chest pain. denies: palpitations Gastrointestinal: denies: abdominal pain, nausea, diarrhea Genitourinary: denies: urgency, dysuria Musculoskeletal: arthralgia, myalgia Skin: denies: rash, lesions Neurological: denies: headache, weakness, paresthesias Physical Exam - Physical Exam Vital Signs: Vital Signs 08/01/17 08/02/17 08/02/17 16:58 00:33 04:12 Temperature 97.3 F L 97.7 F 97.8 F Pulse Rate 88 89 70 Respiratory 16 18 18 Rate Blood Pressure 123/82 108/76 126/88 O2 Sat by Pulse 99 97 99 Oximetry Physical Exam: GENERAL: The patient is well-developed well-nourished. HENT: Normocephalic. Atraumatic. Patient has moist mucous membranes. EYES: Extraocular motions are intact. Pupils equal reactive to light bilaterally. NECK: Supple. Trachea is midline. CHEST/LUNGS: Clear to auscultation. There is no respiratory distress noted. Unable to reproduce chest pain to palpation. HEART/CARDIOVASCULAR: Regular. There is no tachycardia. There is no gallop rub or murmur. ABDOMEN: Abdomen is soft, nontender. Patient has normal bowel sounds. There is no abdominal distention. SKIN: Skin is warm and dry. NEURO: The patient is awake, alert, and oriented. The patient is cooperative. The patient has no focal neurologic deficits. The patient has normal speech and gait. MUSCULOSKELETAL: There is some tenderness palpation to the bilateral calves but no deformity. Unable to reproduce upper arm discomfort palpation. Radial pulse +24 bilaterally. Cap refill less than 2 seconds. There is no limitation range of motion. There is no evidence of acute injury. ED Course Vital Signs 08/01/17 08/02/17 08/02/17 16:58 00:33 04:12 Temperature 97.3 F L 97.7 F 97.8 F Pulse Rate 88 89 70 Respiratory 16 18 18 Rate Blood Pressure 123/82 108/76 126/88 O2 Sat by Pulse 99 97 99 Oximetry ED Medical Decision Making - Lab Data Result diagrams: 08/02/17 11:45 08/02/17 11:45 - EKG Data -: EKG Interpreted by Me EKG shows normal: sinus rhythm, axis, intervals, QRS complexes, ST-T waves Rate: normal - EKG Data When compared to previous EKG there are: previous EKG unavailable Interpretation: normal EKG - Radiology Data Radiology results: report reviewed, image reviewed interpreted by me: Chest x-ray does not show any acute process. There are no pleural effusions, obvious pneumonia and there is no pneumothorax. Bilateral upper extremity venous Doppler is negative for DVT - Medical Decision Making This patient presents after recently being diagnosed with bilateral saddle pulmonary emboli and a right lower extremity DVT that goes to the femoral vein. He was unable to start the anticoagulation and therefore is unable to stay at his current residence and also has a higher risk of further pulmonary emboli and /or DVT. Chest x-ray today did not show any acute process. Bilateral upper extremity venous Doppler was negative for DVT. Labs are mostly unremarkable. He does have some renal insufficiency which is new and therefore I do not want to use Lovenox for anticoagulation. I am also unable to get him set up for Xarelto or Eliquis. And since he continues to have chest discomfort, he will be admitted to the hospital for further evaluation, anticoagulation. He has been started on a heparin drip. He has been accepted for admission by the hospitalist service. - Differential Diagnosis PE, DVT, MT Critical Care Time: No Critical care attestation.: If time is entered above; I have spent that time in minutes in the direct care of this critically ill patient, excluding procedure time. ED Disposition Clinical Impression: Subtherapeutic international normalized ratio (INR) Chest pain Qualifiers: Chest pain type: unspecified Qualified Code(s): R07.9 - Chest pain, unspecified Right leg DVT Qualifiers: Affected thrombotic vein of extremity: unspecified vein of extremity Chronicity : unspecified Qualified Code(s): I82.401 - Acute embolism and thrombosis of unspecified deep veins of right lower extremity Saddle pulmonary embolus Qualifiers: Chronicity: unspecified Acute cor pulmonale presence: without acute cor pulmonale Qualified Code(s): I26.92 - Saddle embolus of pulmonary artery without acute cor pulmonale Disposition: DC-09 OP ADMIT IP TO THIS HOSP Is pt being admited?: Yes Condition: Stable Instructions: Chest Pain (ED) Referrals: PRIMARY CARE, [Primary Care Provider] - 3-5 Days Time of Disposition: 13:32
[2017-08-02] MEDS ORDERED: HEPARIN 10,000 UNITS/10 ML IV ONE (09:27)
--- NOTE | 2017-08-02 09:47 | XRay Report ---
CHEST TWO VIEWS: 08/02/17 CLINICAL: Chest pain. COMPARISON: 06/29/17 FINDINGS: Normal heart and pulmonary vasculature. The lungs are normally expanded and clear.The bones and soft tissues are unremarkable. IMPRESSION: Normal chest.
[2017-08-02] MEDS ORDERED: ULTRAM PO PRN (10:12)
[2017-08-02 10:20] LABS: Creatine Kinase 295 units/L (55-170); Creatine Kinase MB 3.9 ng/mL (0.0-4.0)
[2017-08-02] MEDS ORDERED: TYLENOL PO PRN (10:20)
[2017-08-02] MEDS: HEPARIN/ 0.45% NACL-25,000 UNIT/500 ML 25,000 UNIT/500 ML BAG IV SCH (10:21)
--- NOTE | 2017-08-02 10:27 | History and Physical Report ---
<JOSE OROZCO - Last Filed: 08/22/17 09:58> History of Present Illness Date of examination: 08/02/17 Date of admission: 08/02/2017 Chief complaint: Increased chest pain, calf pain and bilateral upper extremity pain History of present illness: Patient is a 61-year-old male with past medical history of hypertension, coronary artery disease, asthma, bipolar, depression, seizure presents to the emergency department from the [facility] with a complaint of increased chest pain, calf pain and bilateral upper extremity pain. The patient was recently admitted [facility] for emboli and DVTs. He was set up to be discharged home on Xarelto but the patient says that he has been unable to get it due to finical issue; therefore he has not been on any of the meds and is not anticoagulated. The pain was described as aching and had a gradual onset. The patient had difficulty sleeping because of the pain. The pain continued to gradually increase in severity to an 8/10 today. The pain was exacerbated with walking or standing and was not significantly relieved with Tylenol. The patient reports some chills, SOB, chest pain, but denies fever, N/V, cough, abdominal pain or recent trauma to the legs. Past History Past Medical History: hypertension, seizures, other (coronary artery disease, asthma, bipolar, depression) Past Surgical History: No surgical history Social history: denies: smoking, alcohol abuse Family history: hypertension Medications and Allergies Allergies Allergy/AdvReac Type Severity Reaction Status Date / Time haloperidol [From Haldol] Allergy Intermediate Shortness Verified 07/27/17 14:09 of Breath haloperidol lactate Allergy Intermediate Shortness Verified 07/27/17 13:42 [From Haldol] of Breath morphine Allergy Nausea Verified 07/27/17 14:09 oxycodone Allergy Unknown Verified 07/27/17 14:09 benztropine mesylate AdvReac Shortness Verified 07/27/17 14:09 [From Cogentin] of Breath Home Medications Medication Instructions Recorded Confirmed Last Taken Type FLUoxetine [PROzac] 20 mg PO QDAY 07/27/17 08/02/17 Unknown History Paliperidone [Invega] 9 mg PO QAM 07/27/17 08/02/17 Unknown History traZODone [Desyrel] 1 tab PO DAILY 07/27/17 08/02/17 Unknown History Famotidine [Pepcid] 20 mg PO BID #60 tablet 07/29/17 08/02/17 Unknown Rx Rivaroxaban [Xarelto] 15 mg PO BID 21 Days tablet 07/29/17 08/02/17 Unknown Rx traMADol [Ultram 50 MG tab] 50 mg PO Q6HR PRN #30 tablet 07/29/17 08/02/17 Unknown Rx Apixaban [Eliquis] 5 mg PO BID 30 Days tablet 08/03/17 Unknown Rx Apixaban [Eliquis] 10 mg PO Q12HR 7 Days tablet 08/03/17 Unknown Rx Active Meds: Active Medications Acetaminophen (Tylenol) 650 mg PO Q4H PRN PRN Reason: Pain MILD(1-3)/Fever >100.5/BARRERA Albuterol/Ipratropium (Duoneb *Not For Prn Use*) 1 ampul IH Q6HRT AJAY Bisacodyl (Dulcolax) 10 mg W[place] QDAY PRN PRN Reason: Constipation unrelieved by MOM Famotidine (Pepcid) 20 mg PO BID AJAY Fluoxetine HCl (Prozac) 20 mg PO QDAY AJAY Heparin Sodium/Sodium Chloride (Heparin/ 0.45% Nacl-25,000 Unit/500 Ml) 25,000 unit in 500 mls @ 27.215 mls/hr IV TITR AJAY; 15 UNITS/KG/HR PRN Reason: Protocol Last Admin: 08/02/17 10:21 Dose: 15 units/kg/hr, 27.215 mls/hr Miscellaneous Medication (Paliperidone [Invega]) 9 mg PO QAM AJAY Tramadol HCl (Ultram) 50 mg PO Q6HR PRN PRN Reason: Pain Trazodone HCl (Desyrel) mg PO DAILY [facility] Review of Systems Constitutional: no weight loss, no weight gain, no fever Ears, nose, mouth and throat: no ear pain, no ear discharge, no nose pain, no nasal congestion Cardiovascular: chest pain, lightheadedness, shortness of breath, dyspnea on exertion, paroxysmal nocturnal dyspnea Respiratory: shortness of breath, dyspnea on exertion Gastrointestinal: no vomiting, no diarrhea, no constipation Genitourinary Male: no urinary hesitancy, no incontinence, no erectile dysfunction Musculoskeletal: no shooting arm pain, no arm numbness/tingling, no low back pain, no shooting leg pain Integumentary: no redness, no sores Neurological: no parathesias, no numbness, no tingling, no seizures Psychiatric: no hypersomnia, no change in appetite, no change in libido, no suicidal ideation Endocrine: no excessive thirst, no polydipsia, no polyuria, no nocturia, no excessive sweating Hematologic/Lymphatic: no easy bruising, no easy bleeding Allergic/Immunologic: no urticaria, no allergic rhinitis Exam - Constitutional Vitals: Temp Pulse Resp BP Pulse Ox 97.8 F 52 L 14 161/90 98 08/02/17 04:12 08/02/17 10:15 08/02/17 10:15 08/02/17 10:15 08/02/17 09:23 General appearance: Present: no acute distress - EENT Eyes: Present: PERRL ENT: hearing intact - Neck Neck: Present: supple - Respiratory Respiratory effort: normal Respiratory: bilateral: diminished - Cardiovascular Rhythm: regular Heart Sounds: Present: S1 & S2 - Abdominal General gastrointestinal: Present: soft, non-tender Male genitourinary: Present: deferred - Rectal Rectal Exam: deferred - Integumentary Integumentary: Present: clear, warm, dry - Musculoskeletal Musculoskeletal: strength equal bilaterally - Psychiatric Psychiatric: appropriate mood/affect - Neurologic Neurologic: moves all extremities - Allied Health Allied health notes reviewed: nursing Results - Labs CBC & Chem 7: 08/03/17 04:34 08/03/17 04:34 Labs: Laboratory Last Values WBC 6.5 K/mm3 (4.5-11.0) 08/02/17 06:45 RBC 5.08 M/mm3 (3.65-5.03) H 08/02/17 06:45 Hgb 14.7 gm/dl (11.8-15.2) 08/02/17 06:45 Hct 43.2 % (35.5-45.6) 08/02/17 06:45 MCV 85 fl (84-94) 08/02/17 06:45 MCH 29 pg (28-32) 08/02/17 06:45 MCHC 34 % (32-34) 08/02/17 06:45 RDW 12.2 % (13.2-15.2) L 08/02/17 06:45 Plt Count 140 K/mm3 (140-440) 08/02/17 06:45 Lymph % (Auto) 33.6 % (13.4-35.0) 08/02/17 06:45 Jerome % (Auto) 9.8 % (0.0-7.3) H 08/02/17 06:45 Eos % (Auto) 3.6 % (0.0-4.3) 08/02/17 06:45 Baso % (Auto) 0.4 % (0.0-1.8) 08/02/17 06:45 Lymph # 2.2 K/mm3 (1.2-5.4) 08/02/17 06:45 Jerome # 0.6 K/mm3 (0.0-0.8) 08/02/17 06:45 Eos # 0.2 K/mm3 (0.0-0.4) 08/02/17 06:45 Baso # 0.0 K/mm3 (0.0-0.1) 08/02/17 06:45 Seg Neutrophils % 52.6 % (40.0-70.0) 08/02/17 06:45 Seg Neutrophils # 3.4 K/mm3 (1.8-7.7) 08/02/17 06:45 PT 14.3 Sec. (12.2-14.9) 08/01/17 17:36 INR 1.06 (0.87-1.13) 08/01/17 17:36 APTT 36.5 Sec. (24.2-36.6) 08/01/17 17:36 Sodium 139 mmol/L (137-145) 08/01/17 17:36 Potassium 4.4 mmol/L (3.6-5.0) 08/01/17 17:36 Chloride 98.4 mmol/L (98-107) 08/01/17 17:36 Carbon Dioxide 26 mmol/L (22-30) 08/01/17 17:36 Anion Gap 19 mmol/L 08/01/17 17:36 BUN 26 mg/dL (9-20) H 08/01/17 17:36 Creatinine 1.6 mg/dL (0.8-1.5) H 08/01/17 17:36 Estimated GFR 44 ml/min 08/01/17 17:36 BUN/Creatinine Ratio 16 % 08/01/17 17:36 Glucose 81 mg/dL (75-100) 08/01/17 17:36 Calcium 9.3 mg/dL (8.4-10.2) 08/01/17 17:36 Total Bilirubin 0.50 mg/dL (0.1-1.2) 08/01/17 17:36 AST 18 units/L (5-40) 08/01/17 17:36 ALT 16 units/L (7-56) 08/01/17 17:36 Alkaline Phosphatase 73 units/L (35-129) 08/01/17 17:36 Total Creatine Kinase 295 units/L (55-170) H 08/02/17 08:55 CK-MB (CK-2) 3.9 ng/mL (0.0-4.0) 08/02/17 08:55 CK-MB (CK-2) Rel Index 1.3 (0-4) 08/02/17 08:55 Troponin T < 0.010 ng/mL (0.00-0.029) 08/02/17 08:55 Total Protein 7.5 g/dL (6.3-8.2) 08/01/17 17:36 Albumin 4.7 g/dL (3.9-5) 08/01/17 17:36 Albumin/Globulin Ratio 1.7 % 08/01/17 17:36 - Imaging and Cardiology Chest x-ray: image reviewed ([email or web address] ) Assessment and Plan Assessment and plan: Patient is a 61-year-old male with past medical history of hypertension, coronary artery disease, asthma, bipolar, depression, seizure presents to the emergency department from the [facility] with a complaint of increased chest pain, calf pain and bilateral upper extremity pain. Patient was diagnosed with DVT of the Left leg,Saddle pulmonary embolus, Hypertension, Coronary artery disease , Bipolar disorder and Asthma. DVT of the left leg, seen on Doppler He was set up to be discharged home on Xarelto but the patient says that he has been unable to get it due to finical issue Started on heparin drip Saddle pulmonary embolus CTA showed bilateral saddle pulmonary emboli and a right lower extremity DVT that goes to the femoral vein. Started on heparin drip and we will transition to eliquis Hematology consulted for outpatient follow up Pain control Supportive care Hypertension. Stable Closely monitor blood pressure Coronary artery disease. Stable. Closely monitor Bipolar disorder. Continue home antidepressant Asthma. Stable at present time DVT/Prophylaxis Heparin drip Advance Directives: Yes VTE prophylaxis?: Chemical Contraindication Mechanical VTE Prophylaxis: Treatment Not Indicated Plan of care discussed with patient/family: Yes <BUDDY MENA Aleshia - Last Filed: 08/31/17 16:27> History of Present Illness Date of admission: 08/02/17 10:20 Exam - Constitutional Vitals: Temp Pulse Resp BP Pulse Ox 97.4 F L 76 16 154/84 97 08/03/17 08:00 08/03/17 08:26 08/03/17 08:26 08/03/17 08:00 08/03/17 08:00 Results - Labs CBC & Chem 7: 08/03/17 04:34 08/03/17 04:34 Labs: Laboratory Last Values WBC 5.0 K/mm3 (4.5-11.0) 08/03/17 04:34 RBC 5.05 M/mm3 (3.65-5.03) H 08/03/17 04:34 Hgb 14.8 gm/dl (11.8-15.2) 08/03/17 04:34 Hct 43.1 % (35.5-45.6) 08/03/17 04:34 MCV 85 fl (84-94) 08/03/17 04:34 MCH 29 pg (28-32) 08/03/17 04:34 MCHC 34 % (32-34) 08/03/17 04:34 RDW 12.8 % (13.2-15.2) L 08/03/17 04:34 Plt Count 146 K/mm3 (140-440) 08/03/17 04:34 Lymph % (Auto) 32.6 % (13.4-35.0) 08/03/17 04:34 Jerome % (Auto) 7.0 % (0.0-7.3) 08/03/17 04:34 Eos % (Auto) 3.9 % (0.0-4.3) 08/03/17 04:34 Baso % (Auto) 0.8 % (0.0-1.8) 08/03/17 04:34 Lymph # 1.6 K/mm3 (1.2-5.4) 08/03/17 04:34 Jerome # 0.4 K/mm3 (0.0-0.8) 08/03/17 04:34 Eos # 0.2 K/mm3 (0.0-0.4) 08/03/17 04:34 Baso # 0.0 K/mm3 (0.0-0.1) 08/03/17 04:34 Seg Neutrophils % 55.7 % (40.0-70.0) 08/03/17 04:34 Seg Neutrophils # 2.8 K/mm3 (1.8-7.7) 08/03/17 04:34 PT 14.3 Sec. (12.2-14.9) 08/01/17 17:36 INR 1.06 (0.87-1.13) 08/01/17 17:36 APTT 36.5 Sec. (24.2-36.6) 08/01/17 17:36 Heparin Anti-Xa Level 0.93 U.I./ml (0.3-0.7) H 08/03/17 04:34 Sodium 140 mmol/L (137-145) 08/03/17 04:34 Potassium 4.3 mmol/L (3.6-5.0) 08/03/17 04:34 Chloride 100.4 mmol/L (98-107) 08/03/17 04:34 Carbon Dioxide 25 mmol/L (22-30) 08/03/17 04:34 Anion Gap 19 mmol/L 08/03/17 04:34 BUN 19 mg/dL (9-20) 08/03/17 04:34 Creatinine 1.2 mg/dL (0.8-1.5) 08/03/17 04:34 Estimated GFR > 60 ml/min 08/03/17 04:34 BUN/Creatinine Ratio 16 % 08/03/17 04:34 Glucose 105 mg/dL (75-100) H 08/03/17 04:34 Calcium 9.4 mg/dL (8.4-10.2) 08/03/17 04:34 Total Bilirubin 0.50 mg/dL (0.1-1.2) 08/01/17 17:36 AST 18 units/L (5-40) 08/01/17 17:36 ALT 16 units/L (7-56) 08/01/17 17:36 Alkaline Phosphatase 73 units/L (35-129) 08/01/17 17:36 Total Creatine Kinase 295 units/L (55-170) H 08/02/17 08:55 CK-MB (CK-2) 3.9 ng/mL (0.0-4.0) 08/02/17 08:55 CK-MB (CK-2) Rel Index 1.3 (0-4) 08/02/17 08:55 Troponin T < 0.010 ng/mL (0.00-0.029) 08/02/17 08:55 Total Protein 7.5 g/dL (6.3-8.2) 08/01/17 17:36 Albumin 4.7 g/dL (3.9-5) 08/01/17 17:36 Albumin/Globulin Ratio 1.7 % 08/01/17 17:36 Assessment and Plan Assessment and plan: I saw and evaluated the patient. I agree with the findings and the plan of care as documented in the Nurse Practitioner's~note, with the following corrections and additions. Patient is 61 yo with recently diagnosed pulmonary embolism. Here with more chest pain after he could not fill prescription for Xarelto.
[2017-08-02] MEDS ORDERED: DULCOLAX PR PRN (11:00)
[2017-08-02 12:13] LABS: Hematocrit 40.5 % (35.5-45.6); Hemoglobin 13.7 gm/dl (11.8-15.2); Mean Corpuscular HGB Conc 34 % (32-34); Mean Corpuscular Hemoglobin 28 pg (28-32); Mean Corpuscular Volume 84 fl (84-94); Platelet Count 167 K/mm3 (140-440); Red Blood Count 4.84 M/mm3 (3.65-5.03); Red Cell Distribution Width 12.3 % (13.2-15.2); White Blood Count 7.3 K/mm3 (4.5-11.0)
[2017-08-02 12:16] LABS: Chloride 101.2 mmol/L (98-107); Potassium 4.2 mmol/L (3.6-5.0)
[2017-08-02] MEDS: DUONEB *Not for PRN Use IH SCH ×2 (14:41→19:39)
[2017-08-02] MEDS: PEPCID PO SCH (22:38)
[2017-08-03] MEDS: DUONEB *Not for PRN Use IH SCH ×2 (01:24→08:10)
[2017-08-03 05:08] LABS: Basophils % (Auto) 0.8 % (0.0-1.8); Eosinophils % (Auto) 3.9 % (0.0-4.3); Hematocrit 43.1 % (35.5-45.6); Hemoglobin 14.8 gm/dl (11.8-15.2); Mean Corpuscular HGB Conc 34 % (32-34); Mean Corpuscular Hemoglobin 29 pg (28-32); Mean Corpuscular Volume 85 fl (84-94); Platelet Count 146 K/mm3 (140-440); Red Blood Count 5.05 M/mm3 (3.65-5.03); Red Cell Distribution Width 12.8 % (13.2-15.2)
[2017-08-03 05:25] LABS: Anion Gap 19 mmol/L; BUN/Creatinine Ratio 16; Blood Urea Nitrogen 19 mg/dL (9-20); Calcium 9.4 mg/dL (8.4-10.2); Carbon Dioxide 25 mmol/L (22-30); Chloride 100.4 mmol/L (98-107); Glucose 105 mg/dL (75-100); Potassium 4.3 mmol/L (3.6-5.0); Sodium 140 mmol/L (137-145)
[2017-08-03] MEDS: PEPCID PO SCH (09:37)
[2017-08-03 09:38] VITALS: BP 154/84
[2017-08-03] MEDS: HEPARIN/ 0.45% NACL-25,000 UNIT/500 ML 25,000 UNIT/500 ML BAG IV SCH (09:39)
[2017-08-03] MEDS ORDERED: DESYREL PO SCH ×2 (10:00→22:00)
[2017-08-03] MEDS ORDERED: PROzac PO SCH (10:00)
[2017-08-03] MEDS ORDERED: PALIPERIDONE 9 MG PO SCH (10:00)
--- NOTE | 2017-08-03 10:23 | Discharge Summary ---
Providers - Providers Date of Admission: 08/02/17 10:20 Attending physician: HEBER HUFF 08/02/17 11:35 Consult to Case Management [CONS] Routine Services Needed at Discharge: Gift Consultant Notified:: COPY LEFT FOR CM Comment:: To assist fill prescription Xarelto Primary care physician: PALLIATIVE SENIOR NP Hospitalization Reason for admission: PE/DVT Condition: Good Hospital course: Patient is a 61-year-old male with past medical history of hypertension, coronary artery disease, asthma, bipolar, depression, seizure presents to the emergency department from the [place] with a complaint of increased chest pain, calf pain and bilateral upper extremity pain. He was admitted here recently for PE/DVT. He was set up to be discharged home on Xarelto but the patient says that he has been unable to get it due to finical issue and came back to the Emergency Department. Patient Patient was diagnosed with DVT of the Left leg, Saddle pulmonary embolus, Hypertension, Coronary artery disease, Bipolar disorder and Asthma. CTA showed bilateral saddle pulmonary emboli and a right lower extremity DVT that goes to the femoral vein. He was treated with heparin drip. He is being discharged on Eliquis. Patient clinically improved. Patient was advised to follow up with hematology within a week of discharge. Discharge Diagnosed DVT of the left leg, seen on Doppler Saddle pulmonary embolus Hypertension. Coronary artery disease. Bipolar disorder. Asthma. Disposition: - TO HOME OR SELFCARE Time spent for discharge: 35 minute Core Measure Documentation - Palliative Care Palliative Care/ Comfort Measures: Not Applicable - Core Measures Any of the following diagnoses?: none Exam - Constitutional Vitals: Temp Pulse Resp BP Pulse Ox 97.4 F L 76 16 154/84 97 08/03/17 08:00 08/03/17 08:26 08/03/17 08:26 08/03/17 08:00 08/03/17 08:00 General appearance: Present: no acute distress - EENT Eyes: Present: PERRL ENT: hearing intact - Respiratory Respiratory effort: normal Respiratory: bilateral: CTA - Cardiovascular Rhythm: regular Heart Sounds: Present: S1 & S2 - Abdominal General gastrointestinal: Present: soft, non-tender Male genitourinary: Present: deferred - Rectal Rectal Exam: deferred - Integumentary Integumentary: Present: clear, warm, dry - Musculoskeletal Musculoskeletal: strength equal bilaterally - Psychiatric Psychiatric: appropriate mood/affect - Neurologic Neurologic: moves all extremities - Allied Health Allied health notes reviewed: nursing Plan Diet: low fat, low cholesterol Follow up with: PRIMARY CARE, [Primary Care Provider] - 3-5 Days Prescriptions: Apixaban [Eliquis] 10 mg PO Q12HR 7 Days tablet Apixaban [Eliquis] 5 mg PO BID 30 Days tablet
[2017-08-03] MEDS ORDERED: ELIQUIS PO SCH (12:00)
--- NOTE | 2017-08-03 16:55 | Vascular Lab Report ---
UPPER EXTREMITY VENOUS DUPLEX: REASON FOR EXAM: Pain of the upper extremities COMMENTS ON THE RIGHT: All arm veins visualized are freely compressible without evidence of internal echogenicity. The subclavian and internal jugular veins are free of thrombus. Flow is spontaneous and phasic throughout. COMMENTS ON THE LEFT: All arm veins visualized are freely compressible without evidence of internal echogenicity. The subclavian and internal jugular veins are free of thrombus. Flow is spontaneous and phasic throughout. IMPRESSION: No evidence of acute or chronic deep venous thrombosis in the upper extremities.
== END 2017-08-03 13:26 | disposition home or self-care (01) | DRG 299 ==
LOC: ED 16:36 → 3A 08-02 10:20
PROVIDERS: ADMIT Internal Medicine; ATTEND Hospitalist
DX: I82.402 Acute embolism and thrombosis of unspecified deep veins of left lower extremity (principal); I26.92 Saddle embolus of pulmonary artery without acute cor pulmonale; I10 Essential (primary) hypertension; I25.10 Atherosclerotic heart disease of native coronary artery without angina pectoris; F31.9 Bipolar disorder, unspecified; F20.9 Schizophrenia, unspecified; M19.90 Unspecified osteoarthritis, unspecified site; J45.909 Unspecified asthma, uncomplicated; Z96.643 Presence of artificial hip joint, bilateral; G43.909 Migraine, unspecified, not intractable, without status migrainosus; R56.9 Unspecified convulsions; Z87.442 Personal history of urinary calculi; I25.2 Old myocardial infarction
CPT/HCPCS: 36415; 71020; 80048; 80053; 82550; 82553; 84484; 85025; 85027; 85520; 85610; 85730; 93005; 93010; 93970; 94640; 96374; J1644; J7040